=== PATIENT | male | born 1940 | race African-American/Black ===

== ENCOUNTER 2020-05-04 15:32 | Observation (INO) ==
[2020-05-04 16:06] LABS: Basophils % 0.4 % (0.0-0.8); Eosinophils # 0.3 10*3/uL (0.0-0.87); Eosinophils % 3.6 % (0.00-10.9); Hematocrit 26.1 VOL% (42.0-52.0); Hemoglobin 7.9 GM/DL (14.0-18.0); Immature Granulocytes % 0.4 %; Immature Granulocytes Absolute 0.04 #; Lymphocytes % 10.2 % (21.2-54.2); Mean Corpuscular HGB Conc 30.3 GM/DL (32-36); Mean Corpuscular Volume 94.9 FL (87-102); Mean Platelet Volume 11.4 FL (9.6-12.0); Monocytes % 8.5 % (1.7-12.7); Neutrophils % 76.9 % (38.7-73.9); Platelet Count 201 T/CUMM (130-400); Red Blood Count 2.75 MC/CUMM (3.8-5.5); Red Cell Distribution Width 15.6 % (9.3-17.3); White Blood Count 9.5 T/CUMM (4-12)
[2020-05-04 16:26] LABS: Alanine Aminotransferase 19 U/L (16-61); Albumin 2.6 G/DL (3.4-5.0); Alkaline Phosphatase 63 U/L (45-117); Aspartate Amino Transferase 31 U/L (0-37); Bilirubin,Total < 0.39 MG/DL (0.2-1.0); Blood Urea Nitrogen 103 MG/DL (7-18); Calcium 9.8 MG/DL (8.5-10.1); Estimated Glom Filtration Rate 21 ML/MIN; Glucose 214 MG/DL (74-106); Osmolality,Calculated 318.3 MOS/KG (273-304); Total Protein 7.9 G/DL (6.4-8.3)
[2020-05-04] MEDS: LACTATED RINGERS 1,000 ML IV SCH (19:21)
[2020-05-04] MEDS ORDERED: DEXTROSE 50% 25 GM/50 ML VIAL IV PRN ×2 (19:41)
[2020-05-04] MEDS ORDERED: GLUCAGON 1 MG VIAL IM PRN ×2 (19:41)
[2020-05-04] MEDS ORDERED: ACETAMINOPHEN 325 MG TABLET PO PRN (19:41)
[2020-05-04] MEDS ORDERED: ONDANSETRON 4 MG/2 ML VIAL IV PRN (19:41)
[2020-05-04 21:05] LABS: Bacteria,Urine Occasional /HPF (Few); Bilirubin,Urine Negative (Negative); Blood, Urine Small mg/dL (Negative); Glucose,Urine (UA) Negative (Negative); Hyaline Casts,Urine 4 /LPF (0-3); Ketones,Urine Negative (Negative); Mucus,Urine Occasional /LPF (Occasional); Nitrite,Urine Negative (Negative); Protein,Urine 30 MG/DL; RBC,Urine 2 /HPF (0-4); Squamous Epithelial Cell,Urine Occasional /HPF (0-10); Urine Appearance CLEAR (Clear); Urine Color Straw (Yellow); Urine Urobilinogen < 2.0 EU/DL (0.2-1.0); WBC,Urine 2 /HPF (0-6)
[2020-05-04] MEDS ORDERED: COLCHICINE 0.6 MG CAPSULE PO PRN (21:08)
[2020-05-04] MEDS: INSULIN LISPRO 100 UNIT/ML SUBCUT SCH (23:37)
[2020-05-05] MEDS: ASPIRIN EC 81 MG TABLET PO SCH ×2 (04:00→20:36)
[2020-05-05 05:59] LABS: Basophils # 0.1 10*3/uL (0.0-0.2); Basophils % 0.6 % (0.0-0.8); Eosinophils # 0.4 10*3/uL (0.0-0.87); Eosinophils % 4.7 % (0.00-10.9); Hematocrit 26.8 VOL% (42.0-52.0); Hemoglobin 8.3 GM/DL (14.0-18.0); Immature Granulocytes % 0.7 %; Immature Granulocytes Absolute 0.06 #; Lymphocytes # 0.8 10*3/uL (1.4-4.0); Lymphocytes % 10.3 % (21.2-54.2); Mean Corpuscular Volume 92.7 FL (87-102); Mean Platelet Volume 12.8 FL (9.6-12.0); Monocytes % 10.5 % (1.7-12.7); Neutrophils % 73.2 % (38.7-73.9); Platelet Count 155 T/CUMM (130-400); Red Blood Count 2.89 MC/CUMM (3.8-5.5); Red Cell Distribution Width 15.5 % (9.3-17.3); White Blood Count 8.2 T/CUMM (4-12)
[2020-05-05 06:01] LABS: Hypochromasia 1+; Microcytosis 1+; Ovalocytes Slight
[2020-05-05 06:02] LABS: Platelet Estimate Adequate; Target Cells Slight
[2020-05-05 06:20] LABS: Calcium 9.7 MG/DL (8.5-10.1); Osmolality,Calculated 314.3 MOS/KG (273-304)
[2020-05-05] MEDS: SODIUM CHLOR 0.45% KCL 20 MEQ 20 MEQ/1,000 ML BAG IV SCH ×2 (07:35→17:54)
[2020-05-05] MEDS: INSULIN LISPRO 100 UNIT/ML SUBCUT SCH ×3 (08:53→17:54)
[2020-05-05] MEDS: CHOLECALCIFEROL 1,000 UNIT TABLET PO SCH (08:54)
[2020-05-05] MEDS: OXYBUTYNIN XL 15 MG TABLET PO SCH (08:54)
[2020-05-05] MEDS: allopurinoL 300 MG TABLET PO SCH (08:54)
[2020-05-05] MEDS: CYANOCOBALAMIN 500 MCG TABLET PO SCH (08:55)
[2020-05-05] MEDS: CLOPIDOGREL 75 MG TABLET PO SCH (08:55)
[2020-05-05] MEDS: PANTOPRAZOLE 40 MG TABLET PO SCH (08:55)
[2020-05-05] MEDS: TAMSULOSIN 0.4 MG CAPSULE PO SCH (08:56)
[2020-05-05] MEDS ORDERED: lisinopriL 10 MG TABLET PO SCH (09:00)
[2020-05-05] MEDS: LACTATED RINGERS 1,000 ML IV SCH ×2 (11:42→11:43)
[2020-05-05] MEDS: HEPARIN 5,000 UNIT/1 ML VIAL SUBCUT SCH (17:55)
[2020-05-05] MEDS: ROSUVASTATIN 20 MG TABLET PO SCH (20:37)
[2020-05-06] MEDS: HEPARIN 5,000 UNIT/1 ML VIAL SUBCUT SCH ×3 (02:04→17:30)
[2020-05-06] MEDS: INSULIN LISPRO 100 UNIT/ML SUBCUT SCH ×5 (04:29→21:45)
[2020-05-06 06:25] LABS: Uric Acid 4.6 MG/DL (3.5-7.2)
[2020-05-06 08:00] LABS: Calcium 8.9 MG/DL (8.5-10.1); Osmolality,Calculated 318.6 MOS/KG (273-304)
[2020-05-06] MEDS: CYANOCOBALAMIN 500 MCG TABLET PO SCH (08:54)
[2020-05-06] MEDS: CHOLECALCIFEROL 1,000 UNIT TABLET PO SCH (08:54)
[2020-05-06] MEDS: CLOPIDOGREL 75 MG TABLET PO SCH (08:54)
[2020-05-06] MEDS: PANTOPRAZOLE 40 MG TABLET PO SCH (08:54)
[2020-05-06] MEDS: OXYBUTYNIN XL 15 MG TABLET PO SCH (08:54)
[2020-05-06] MEDS: allopurinoL 300 MG TABLET PO SCH (08:55)
[2020-05-06] MEDS: TAMSULOSIN 0.4 MG CAPSULE PO SCH (08:55)
[2020-05-06] MEDS: SODIUM CHLOR 0.45% KCL 20 MEQ 20 MEQ/1,000 ML BAG IV SCH ×2 (09:02→19:24)
[2020-05-06 17:37] LABS: Vitamin B12 > 2000 PG/ML (211-911)
[2020-05-06] MEDS: ASPIRIN EC 81 MG TABLET PO SCH (21:44)
[2020-05-06] MEDS: ROSUVASTATIN 20 MG TABLET PO SCH (21:44)
[2020-05-07] MEDS: HEPARIN 5,000 UNIT/1 ML VIAL SUBCUT SCH ×3 (02:55→17:44)
[2020-05-07 06:53] LABS: Osmolality,Calculated 316.4 MOS/KG (273-304)
[2020-05-07 06:56] LABS: Basophils % 0.5 % (0.0-0.8); Eosinophils # 0.3 10*3/uL (0.0-0.87); Eosinophils % 3.6 % (0.00-10.9); Hematocrit 26.6 VOL% (42.0-52.0); Hemoglobin 7.9 GM/DL (14.0-18.0); Immature Granulocytes % 0.6 %; Immature Granulocytes Absolute 0.05 #; Lymphocytes # 0.9 10*3/uL (1.4-4.0); Lymphocytes % 10.3 % (21.2-54.2); Mean Corpuscular HGB Conc 29.7 GM/DL (32-36); Mean Corpuscular Volume 94.7 FL (87-102); Mean Platelet Volume 11.5 FL (9.6-12.0); Monocytes % 10.1 % (1.7-12.7); Neutrophils % 74.9 % (38.7-73.9); Platelet Count 193 T/CUMM (130-400); Red Blood Count 2.81 MC/CUMM (3.8-5.5); Red Cell Distribution Width 15.3 % (9.3-17.3); White Blood Count 8.5 T/CUMM (4-12)
[2020-05-07] MEDS: CYANOCOBALAMIN 500 MCG TABLET PO SCH (09:08)
[2020-05-07] MEDS: CLOPIDOGREL 75 MG TABLET PO SCH (09:08)
[2020-05-07] MEDS: allopurinoL 300 MG TABLET PO SCH (09:08)
[2020-05-07] MEDS: TAMSULOSIN 0.4 MG CAPSULE PO SCH (09:08)
[2020-05-07] MEDS: INSULIN LISPRO 100 UNIT/ML SUBCUT SCH ×4 (09:09→21:18)
[2020-05-07] MEDS: PANTOPRAZOLE 40 MG TABLET PO SCH (09:09)
[2020-05-07] MEDS: OXYBUTYNIN XL 15 MG TABLET PO SCH (09:14)
[2020-05-07] MEDS: CHOLECALCIFEROL 1,000 UNIT TABLET PO SCH (09:14)
[2020-05-07] MEDS ORDERED: INFLUENZA VIRUS VACCINE 0.5 ML SYRINGE IM ONE (13:50)
[2020-05-07] MEDS: SODIUM CHLOR 0.45% KCL 20 MEQ 20 MEQ/1,000 ML BAG IV SCH (16:11)
[2020-05-07] MEDS: ASPIRIN EC 81 MG TABLET PO SCH (21:18)
[2020-05-07] MEDS: ROSUVASTATIN 20 MG TABLET PO SCH (21:18)
[2020-05-08] MEDS: HEPARIN 5,000 UNIT/1 ML VIAL SUBCUT SCH ×2 (00:49→08:41)
[2020-05-08] MEDS: INSULIN LISPRO 100 UNIT/ML SUBCUT SCH (08:12)
[2020-05-08] MEDS: allopurinoL 300 MG TABLET PO SCH (08:13)
[2020-05-08] MEDS: OXYBUTYNIN XL 15 MG TABLET PO SCH (08:13)
[2020-05-08] MEDS: CYANOCOBALAMIN 500 MCG TABLET PO SCH (08:13)
[2020-05-08] MEDS: CHOLECALCIFEROL 1,000 UNIT TABLET PO SCH (08:13)
[2020-05-08] MEDS: CLOPIDOGREL 75 MG TABLET PO SCH (08:14)
[2020-05-08] MEDS: PANTOPRAZOLE 40 MG TABLET PO SCH (08:14)
[2020-05-08] MEDS: TAMSULOSIN 0.4 MG CAPSULE PO SCH (08:14)
[2020-05-08 09:12] VITALS: BP 167/62
== END 2020-05-08 09:35 | disposition hospice, home (50) ==
LOC: N.ED 15:32 → SUATTDRO 19:41 → N.EDINP 19:41 → INTOOBSV 19:41 → N.4E 22:40
PROVIDERS: ADMIT Internal Medicine; ATTEND Emergency Medicine

== ENCOUNTER 2022-07-29 11:48 | Inpatient (IN) ==
[2022-07-29 17:00] LABS: Basophils % 0.2 % (0.0-0.8); Hematocrit 26.2 VOL% (42.0-52.0); Hemoglobin 8.5 GM/DL (14.0-18.0); Immature Granulocytes % 0.7 %; Immature Granulocytes Absolute 0.09 #; Lymphocytes # 0.5 10*3/uL (1.4-4.0); Lymphocytes % 3.8 % (21.2-54.2); Mean Corpuscular HGB Conc 32.4 GM/DL (32-36); Mean Corpuscular Volume 94.2 FL (87-102); Mean Platelet Volume 13.4 FL (9.6-12.0); Monocytes # 0.8 10*3/uL (0.11-0.8); Monocytes % 6.5 % (1.7-12.7); Neutrophils % 88.8 % (38.7-73.9); Platelet Count 121 T/CUMM (130-400); Red Blood Count 2.78 MC/CUMM (3.8-5.5); Red Cell Distribution Width 15.2 % (9.3-17.3); White Blood Count 12.7 T/CUMM (4-12)
[2022-07-29 17:20] LABS: Calcium 8.6 MG/DL (8.5-10.1); Osmolality,Calculated 324.7 MOS/KG (273-304)
[2022-07-29 17:27] LABS: Band Neutrophils 1 % (0-10); Hypochromia Slight; Lymphocytes 2 % (20-55); Total Cells Counted 100
[2022-07-29 17:28] LABS: Anisocytosis Slight; Platelet Estimate Normal
[2022-07-29] MEDS ORDERED: DOXYCYCLINE HYCLATE 100 MG CAPSULE PO STA (18:52)
[2022-07-29] MEDS ORDERED: cefTRIAXone 1,000 MG in SODIUM CHLORIDE 0.9% 100 ML IV STA (19:04)
[2022-07-29] MEDS ORDERED: AZITHROMYCIN INJ 500 MG in SODIUM CHLORIDE 0.9% 250 ML IV STA (19:04)
[2022-07-29] MEDS ORDERED: FUROSEMIDE 40 MG/4 ML VIAL IV STA ×2 (19:04→19:23)
[2022-07-29] MEDS ORDERED: DOCUSATE SODIUM 100 MG CAPSULE PO PRN (19:18)
[2022-07-29] MEDS ORDERED: ONDANSETRON 4 MG/2 ML VIAL IV PRN (19:18)
[2022-07-29] MEDS: INSULIN GLARGINE 100 UNIT/ML SUBCUT SCH (22:45)
[2022-07-29] MEDS: ALBUTEROL/IPRATROPIUM 3 ML NEB RESP TX SCH (22:45)
[2022-07-29] MEDS: HEPARIN 5,000 UNIT/1 ML VIAL SUBCUT SCH (22:45)
[2022-07-30 06:58] LABS: Basophils % 0.3 % (0.0-0.8); Eosinophils % 0.1 % (0.00-10.9); Hematocrit 25.5 VOL% (42.0-52.0); Hemoglobin 8.4 GM/DL (14.0-18.0); Immature Granulocytes % 0.5 %; Immature Granulocytes Absolute 0.06 #; Lymphocytes # 0.4 10*3/uL (1.4-4.0); Lymphocytes % 3.7 % (21.2-54.2); Mean Corpuscular HGB Conc 32.9 GM/DL (32-36); Mean Corpuscular Volume 93.4 FL (87-102); Mean Platelet Volume 11.2 FL (9.6-12.0); Monocytes # 1.2 10*3/uL (0.11-0.8); Monocytes % 9.8 % (1.7-12.7); Neutrophils % 85.6 % (38.7-73.9); Red Blood Count 2.73 MC/CUMM (3.8-5.5); Red Cell Distribution Width 15.2 % (9.3-17.3); White Blood Count 11.9 T/CUMM (4-12)
[2022-07-30 07:00] LABS: Platelet Count 109 T/CUMM (130-400)
[2022-07-30 07:10] LABS: Calcium 9.3 MG/DL (8.5-10.1); Osmolality,Calculated 326.5 MOS/KG (273-304); Potassium 3.5 MMOL/L (3.5-5.1); Risk Ratio 5.32; Thyroid Stimulating Hormone 0.671 uIU/ml (0.358-3.74); VLDL Cholesterol 30.8 MG/DL
[2022-07-30 07:46] LABS: Hypochromia Slight; Lymphocytes 1 % (20-55); Microcytosis Slight; Total Cells Counted 100
[2022-07-30] MEDS: ALBUTEROL/IPRATROPIUM 3 ML NEB RESP TX SCH ×3 (07:51→19:27)
[2022-07-30] MEDS: FUROSEMIDE 40 MG/4 ML VIAL IV SCH (08:25)
[2022-07-30] MEDS: ISOSORBIDE MONONITRATE 30 MG TABLET PO SCH (08:25)
[2022-07-30] MEDS: PANTOPRAZOLE 40 MG TABLET PO SCH (08:25)
[2022-07-30] MEDS: OXYBUTYNIN XL 10 MG TABLET PO SCH (08:25)
[2022-07-30] MEDS: CLOPIDOGREL 75 MG TABLET PO SCH (09:00)
[2022-07-30 11:05] LABS: Hepatitis B Core IgM Quant 0.13 Index; Hepatitis B Surface Ag Quant < 0.10 Index; Hepatitis B Surface Ag Result Non-Reactive (NonReactive); Hepatitis C Virus Ab Quant < 0.02 Index; Hepatitis C Virus Ab Result Non-Reactive (NonReactive)
[2022-07-30] MEDS ORDERED: HEPARIN 10,000 UNIT/10 ML VIAL IV SCH (12:30)
[2022-07-30] MEDS: HEPARIN 5,000 UNIT/1 ML VIAL SUBCUT SCH ×2 (14:54→20:39)
[2022-07-30] MEDS: ASPIRIN EC 81 MG TABLET PO SCH (14:59)
[2022-07-30] MEDS: allopurinoL 300 MG TABLET PO SCH (14:59)
[2022-07-30] MEDS: cefTRIAXone 2,000 MG in SODIUM CHLORIDE 0.9% 100 ML IV SCH (20:40)
[2022-07-30] MEDS: INSULIN GLARGINE 100 UNIT/ML SUBCUT SCH (20:40)
[2022-07-31] MEDS: ALBUTEROL/IPRATROPIUM 3 ML NEB RESP TX SCH ×4 (01:47→19:31)
[2022-07-31 05:45] LABS: Basophils % 0.2 % (0.0-0.8); Hematocrit 24.1 VOL% (42.0-52.0); Hemoglobin 7.8 GM/DL (14.0-18.0); Immature Granulocytes % 0.7 %; Immature Granulocytes Absolute 0.08 #; Lymphocytes # 0.4 10*3/uL (1.4-4.0); Lymphocytes % 3.1 % (21.2-54.2); Mean Corpuscular HGB Conc 32.4 GM/DL (32-36); Mean Corpuscular Volume 93.8 FL (87-102); Mean Platelet Volume 12.5 FL (9.6-12.0); Monocytes # 1.1 10*3/uL (0.11-0.8); Monocytes % 9.9 % (1.7-12.7); Neutrophils % 86.1 % (38.7-73.9); Platelet Count 120 T/CUMM (130-400); Red Blood Count 2.57 MC/CUMM (3.8-5.5); Red Cell Distribution Width 15.2 % (9.3-17.3); White Blood Count 11.4 T/CUMM (4-12)
[2022-07-31 06:00] LABS: Calcium 9.3 MG/DL (8.5-10.1); Osmolality,Calculated 316.5 MOS/KG (273-304); Potassium 3.5 MMOL/L (3.5-5.1)
[2022-07-31 06:02] LABS: Parathyroid Hormone Intact 333.2 PG/ML (18.4-80.1)
[2022-07-31 06:11] LABS: Ferritin 888.1 ng/mL (26-388); Phosphorous 5.4 MG/DL (2.5-4.9); Uric Acid 4.4 MG/DL (3.5-7.2)
[2022-07-31 06:29] LABS: Hypochromia Slight; Lymphocytes 2 % (20-55); Microcytosis Slight; Total Cells Counted 100
[2022-07-31] MEDS: HEPARIN 5,000 UNIT/1 ML VIAL SUBCUT SCH ×2 (10:28→20:54)
[2022-07-31] MEDS: allopurinoL 300 MG TABLET PO SCH (10:28)
[2022-07-31] MEDS: ASPIRIN EC 81 MG TABLET PO SCH (10:28)
[2022-07-31] MEDS: PANTOPRAZOLE 40 MG TABLET PO SCH (10:28)
[2022-07-31] MEDS: OXYBUTYNIN XL 10 MG TABLET PO SCH (10:28)
[2022-07-31] MEDS: ISOSORBIDE MONONITRATE 30 MG TABLET PO SCH (10:34)
[2022-07-31] MEDS: FUROSEMIDE 40 MG/4 ML VIAL IV SCH (11:22)
[2022-07-31] MEDS: CLOPIDOGREL 75 MG TABLET PO SCH (11:22)
[2022-07-31] MEDS: AZITHROMYCIN 250 MG TABLET PO SCH (12:09)
[2022-07-31] MEDS: cefTRIAXone 2,000 MG in SODIUM CHLORIDE 0.9% 100 ML IV SCH (20:54)
[2022-07-31] MEDS: INSULIN GLARGINE 100 UNIT/ML SUBCUT SCH (20:54)
[2022-08-01] MEDS: ALBUTEROL/IPRATROPIUM 3 ML NEB RESP TX SCH ×4 (00:16→19:30)
[2022-08-01 06:47] LABS: Basophils % 0.2 % (0.0-0.8); Eosinophils % 0.3 % (0.00-10.9); Hematocrit 23.6 VOL% (42.0-52.0); Hemoglobin 7.8 GM/DL (14.0-18.0); Immature Granulocytes % 0.9 %; Immature Granulocytes Absolute 0.09 #; Lymphocytes # 0.4 10*3/uL (1.4-4.0); Lymphocytes % 3.6 % (21.2-54.2); Mean Corpuscular HGB Conc 33.1 GM/DL (32-36); Mean Corpuscular Volume 91.8 FL (87-102); Mean Platelet Volume 12.6 FL (9.6-12.0); Monocytes # 1.1 10*3/uL (0.11-0.8); Monocytes % 10.5 % (1.7-12.7); Neutrophils % 84.5 % (38.7-73.9); Platelet Count 109 T/CUMM (130-400); Red Blood Count 2.57 MC/CUMM (3.8-5.5); Red Cell Distribution Width 15.5 % (9.3-17.3); White Blood Count 10.4 T/CUMM (4-12)
[2022-08-01 07:02] LABS: Calcium 9.1 MG/DL (8.5-10.1); Osmolality,Calculated 319.5 MOS/KG (273-304); Potassium 3.4 MMOL/L (3.5-5.1)
[2022-08-01 07:17] LABS: Eosinophils 1 % (0-10); Hypochromia Slight; Lymphocytes 6 % (20-55); Microcytosis Slight; Ovalocytes Slight; Platelet Estimate Decreased; Total Cells Counted 100
[2022-08-01] MEDS: ASPIRIN EC 81 MG TABLET PO SCH (09:34)
[2022-08-01] MEDS: OXYBUTYNIN XL 10 MG TABLET PO SCH (09:34)
[2022-08-01] MEDS: SEVELAMER CARBONATE 800 MG TABLET PO SCH ×3 (09:34→17:12)
[2022-08-01] MEDS: HEPARIN 5,000 UNIT/1 ML VIAL SUBCUT SCH ×2 (09:34→20:32)
[2022-08-01] MEDS: AZITHROMYCIN 250 MG TABLET PO SCH (09:34)
[2022-08-01] MEDS: ISOSORBIDE MONONITRATE 30 MG TABLET PO SCH (09:34)
[2022-08-01] MEDS: PANTOPRAZOLE 40 MG TABLET PO SCH (09:34)
[2022-08-01] MEDS: allopurinoL 300 MG TABLET PO SCH (09:34)
[2022-08-01] MEDS ORDERED: NITROGLYCERIN SL 0.4 MG TABLET SL PRN (13:14)
[2022-08-01] MEDS: carvediloL 12.5 MG TABLET PO SCH (17:12)
[2022-08-01] MEDS: cefTRIAXone 2,000 MG in SODIUM CHLORIDE 0.9% 100 ML IV SCH (20:31)
[2022-08-01] MEDS: ROSUVASTATIN 20 MG TABLET PO SCH (20:32)
[2022-08-01] MEDS: INSULIN GLARGINE 100 UNIT/ML SUBCUT SCH (20:32)
[2022-08-02] MEDS: ALBUTEROL/IPRATROPIUM 3 ML NEB RESP TX SCH ×4 (00:08→19:50)
[2022-08-02 05:17] LABS: Basophils % 0.1 % (0.0-0.8); Eosinophils # 0.1 10*3/uL (0.0-0.87); Eosinophils % 0.9 % (0.00-10.9); Hematocrit 25.1 VOL% (42.0-52.0); Hemoglobin 7.9 GM/DL (14.0-18.0); Immature Granulocytes % 0.7 %; Immature Granulocytes Absolute 0.07 #; Lymphocytes # 0.2 10*3/uL (1.4-4.0); Lymphocytes % 2.3 % (21.2-54.2); Mean Corpuscular HGB Conc 31.5 GM/DL (32-36); Mean Corpuscular Volume 93.3 FL (87-102); Mean Platelet Volume 12.2 FL (9.6-12.0); Monocytes # 1.2 10*3/uL (0.11-0.8); Monocytes % 11.7 % (1.7-12.7); NRBC # 0.02 10*3/uL; Neutrophils % 84.3 % (38.7-73.9); Platelet Count 133 T/CUMM (130-400); Red Blood Count 2.69 MC/CUMM (3.8-5.5); Red Cell Distribution Width 15.4 % (9.3-17.3); White Blood Count 9.9 T/CUMM (4-12)
[2022-08-02 05:47] LABS: Eosinophils 1 % (0-10); Hypochromia Slight; Lymphocytes 3 % (20-55); Total Cells Counted 100
[2022-08-02 05:48] LABS: Microcytosis Slight; Ovalocytes Slight; Target Cells Slight
[2022-08-02 05:51] LABS: Calcium 9.2 MG/DL (8.5-10.1); Osmolality,Calculated 304.5 MOS/KG (273-304); Potassium 3.5 MMOL/L (3.5-5.1)
[2022-08-02 05:57] LABS: % Iron Saturation 14.3 % (18-50)
[2022-08-02] MEDS ORDERED: EPOETIN ALFA-EPBX 10,000 UNIT/ML VIAL IV SCH (08:00)
[2022-08-02] MEDS: OMEGA 3 ACID ETHYL ESTERS 1 GM CAPSULE PO SCH (09:16)
[2022-08-02] MEDS: AZITHROMYCIN 250 MG TABLET PO SCH (09:16)
[2022-08-02] MEDS: SEVELAMER CARBONATE 800 MG TABLET PO SCH ×3 (09:16→17:13)
[2022-08-02] MEDS: allopurinoL 300 MG TABLET PO SCH (09:16)
[2022-08-02] MEDS: MULTIVITAMIN (CENTRUM) TABLET PO SCH (09:16)
[2022-08-02] MEDS: PANTOPRAZOLE 40 MG TABLET PO SCH (09:16)
[2022-08-02] MEDS: OXYBUTYNIN XL 10 MG TABLET PO SCH (09:16)
[2022-08-02] MEDS: ISOSORBIDE MONONITRATE 30 MG TABLET PO SCH (09:16)
[2022-08-02] MEDS: ASPIRIN EC 81 MG TABLET PO SCH (09:16)
[2022-08-02] MEDS: CHOLECALCIFEROL 5,000 UNIT TABLET PO SCH (09:17)
[2022-08-02] MEDS: DONEPEZIL 10 MG TABLET PO SCH (09:17)
[2022-08-02] MEDS: carvediloL 12.5 MG TABLET PO SCH ×2 (09:17→17:13)
[2022-08-02] MEDS: TAMSULOSIN 0.4 MG CAPSULE PO SCH (09:17)
[2022-08-02] MEDS: HEPARIN 5,000 UNIT/1 ML VIAL SUBCUT SCH ×2 (09:17→21:20)
[2022-08-02] MEDS: cefTRIAXone 2,000 MG in SODIUM CHLORIDE 0.9% 100 ML IV SCH (09:18)
[2022-08-02] MEDS: INSULIN GLARGINE 100 UNIT/ML SUBCUT SCH (21:19)
[2022-08-02] MEDS: MENTHOL/ZINC OXIDE OINT 71 GM JAR TOP SCH (21:19)
[2022-08-02] MEDS: ROSUVASTATIN 20 MG TABLET PO SCH (21:20)
[2022-08-03] MEDS: ALBUTEROL/IPRATROPIUM 3 ML NEB RESP TX SCH ×4 (00:19→20:15)
[2022-08-03] MEDS: cefTRIAXone 2,000 MG in SODIUM CHLORIDE 0.9% 100 ML IV SCH (09:15)
[2022-08-03] MEDS: SEVELAMER CARBONATE 800 MG TABLET PO SCH ×3 (09:15→16:15)
[2022-08-03] MEDS: PANTOPRAZOLE 40 MG TABLET PO SCH (09:16)
[2022-08-03] MEDS: MULTIVITAMIN (CENTRUM) TABLET PO SCH (09:16)
[2022-08-03] MEDS: allopurinoL 300 MG TABLET PO SCH (09:16)
[2022-08-03] MEDS: TAMSULOSIN 0.4 MG CAPSULE PO SCH (09:16)
[2022-08-03] MEDS: CHOLECALCIFEROL 5,000 UNIT TABLET PO SCH (09:16)
[2022-08-03] MEDS: DONEPEZIL 10 MG TABLET PO SCH (09:16)
[2022-08-03] MEDS: OXYBUTYNIN XL 10 MG TABLET PO SCH (09:16)
[2022-08-03] MEDS: carvediloL 12.5 MG TABLET PO SCH ×2 (09:16→17:01)
[2022-08-03] MEDS: OMEGA 3 ACID ETHYL ESTERS 1 GM CAPSULE PO SCH (09:16)
[2022-08-03] MEDS: AZITHROMYCIN 250 MG TABLET PO SCH (09:16)
[2022-08-03] MEDS: HEPARIN 5,000 UNIT/1 ML VIAL SUBCUT SCH (09:16)
[2022-08-03] MEDS: ISOSORBIDE MONONITRATE 30 MG TABLET PO SCH (09:16)
[2022-08-03] MEDS: ASPIRIN EC 81 MG TABLET PO SCH (12:20)
[2022-08-03] MEDS: MENTHOL/ZINC OXIDE OINT 71 GM JAR TOP SCH ×2 (12:20→21:41)
[2022-08-03] MEDS: ROSUVASTATIN 20 MG TABLET PO SCH (21:40)
[2022-08-03] MEDS: INSULIN GLARGINE 100 UNIT/ML SUBCUT SCH (21:41)
[2022-08-04] MEDS: ALBUTEROL/IPRATROPIUM 3 ML NEB RESP TX SCH ×4 (00:15→19:45)
[2022-08-04] MEDS ORDERED: SODIUM CHLORIDE 0.9% 250 ML IV SCH (08:00)
[2022-08-04] MEDS ORDERED: SEVOFLURANE 1 UNIT/15 MINUTE INH ONE (09:26)
[2022-08-04] MEDS ORDERED: LIDOCAINE 2% 5 ML VIAL ONE (09:26)
[2022-08-04] MEDS ORDERED: fentaNYL 100 MCG/2 ML VIAL ONE (09:26)
[2022-08-04] MEDS ORDERED: propofoL 200 MG/20 ML VIAL IV ONE (09:26)
[2022-08-04] MEDS ORDERED: PHENYLEPHRINE 1 MG/10 ML SYRINGE IV ONE (09:26)
[2022-08-04] MEDS ORDERED: ETOMIDATE 40 MG/20 ML VIAL IV ONE (09:26)
[2022-08-04] MEDS ORDERED: ROCURONIUM 50 MG/5 ML VIAL IV ONE (09:26)
[2022-08-04] MEDS ORDERED: LIDOCAINE 1%/EPI INJ 20 ML VIAL ONE (09:27)
[2022-08-04] MEDS ORDERED: HEPARIN 5,000 UNIT/1 ML VIAL ONE (09:27)
[2022-08-04] MEDS ORDERED: BUPIVACAINE MPF 0.25% 10 ML VIAL ONE (09:27)
[2022-08-04] MEDS ORDERED: ONDANSETRON 4 MG/2 ML VIAL ONE (09:27)
[2022-08-04] MEDS: carvediloL 12.5 MG TABLET PO SCH ×2 (09:56→17:55)
[2022-08-04] MEDS: SEVELAMER CARBONATE 800 MG TABLET PO SCH ×3 (09:56→17:36)
[2022-08-04] MEDS: MENTHOL/ZINC OXIDE OINT 71 GM JAR TOP SCH ×2 (09:57→20:44)
[2022-08-04] MEDS ORDERED: SUGAMMADEX 200 MG/2 ML VIAL IV ONE (10:41)
[2022-08-04] MEDS: MULTIVITAMIN (CENTRUM) TABLET PO SCH (11:11)
[2022-08-04] MEDS: ASPIRIN EC 81 MG TABLET PO SCH (11:11)
[2022-08-04] MEDS: PANTOPRAZOLE 40 MG TABLET PO SCH (11:11)
[2022-08-04] MEDS: OMEGA 3 ACID ETHYL ESTERS 1 GM CAPSULE PO SCH (11:12)
[2022-08-04] MEDS: CHOLECALCIFEROL 5,000 UNIT TABLET PO SCH (11:12)
[2022-08-04] MEDS: allopurinoL 300 MG TABLET PO SCH (11:12)
[2022-08-04] MEDS ORDERED: PHENYLEPHRINE DRIP 20 MG/250 ML PREMIX IV ONE (11:21)
[2022-08-04 12:04] LABS: Basophils % 0.3 % (0.0-0.8); Eosinophils # 0.4 10*3/uL (0.0-0.87); Eosinophils % 2.7 % (0.00-10.9); Hematocrit 24.7 VOL% (42.0-52.0); Hemoglobin 7.9 GM/DL (14.0-18.0); Immature Granulocytes % 1.3 %; Immature Granulocytes Absolute 0.19 #; Lymphocytes # 0.7 10*3/uL (1.4-4.0); Lymphocytes % 4.7 % (21.2-54.2); Mean Corpuscular Volume 92.5 FL (87-102); Mean Platelet Volume 11.2 FL (9.6-12.0); Monocytes # 1.4 10*3/uL (0.11-0.8); Monocytes % 9.8 % (1.7-12.7); NRBC # 0.02 10*3/uL; Neutrophils % 81.2 % (38.7-73.9); Platelet Count 212 T/CUMM (130-400); Red Blood Count 2.67 MC/CUMM (3.8-5.5); Red Cell Distribution Width 15.7 % (9.3-17.3); White Blood Count 14.8 T/CUMM (4-12)
[2022-08-04 12:32] LABS: Calcium 8.1 MG/DL (8.5-10.1); Osmolality,Calculated 312.4 MOS/KG (273-304); Potassium 4.3 MMOL/L (3.5-5.1)
[2022-08-04 14:32] LABS: Eosinophils 2 % (0-10); Lymphocytes 4 % (20-55); Nucleated Red Blood Cells 1 /100 WBC (0-5); Total Cells Counted 100
[2022-08-04 14:33] LABS: Platelet Estimate Adequate
[2022-08-04] MEDS: OXYBUTYNIN XL 10 MG TABLET PO SCH (14:35)
[2022-08-04] MEDS: TAMSULOSIN 0.4 MG CAPSULE PO SCH (14:35)
[2022-08-04] MEDS: DONEPEZIL 10 MG TABLET PO SCH (14:35)
[2022-08-04] MEDS: ISOSORBIDE MONONITRATE 30 MG TABLET PO SCH (14:35)
[2022-08-04] MEDS: cefTRIAXone 2,000 MG in SODIUM CHLORIDE 0.9% 100 ML IV SCH (18:04)
[2022-08-04] MEDS: AZITHROMYCIN 250 MG TABLET PO SCH (19:02)
[2022-08-04] MEDS: ROSUVASTATIN 20 MG TABLET PO SCH (20:41)
[2022-08-04] MEDS: INSULIN GLARGINE 100 UNIT/ML SUBCUT SCH (20:44)
[2022-08-05] MEDS: ALBUTEROL/IPRATROPIUM 3 ML NEB RESP TX SCH ×4 (01:38→20:30)
[2022-08-05 05:31] LABS: Basophils # 0.1 10*3/uL (0.0-0.2); Basophils % 0.4 % (0.0-0.8); Eosinophils # 0.4 10*3/uL (0.0-0.87); Eosinophils % 2.5 % (0.00-10.9); Hematocrit 25.8 VOL% (42.0-52.0); Hemoglobin 8.3 GM/DL (14.0-18.0); Immature Granulocytes % 2.5 %; Lymphocytes # 0.8 10*3/uL (1.4-4.0); Lymphocytes % 4.8 % (21.2-54.2); Mean Corpuscular HGB Conc 32.2 GM/DL (32-36); Mean Corpuscular Volume 92.8 FL (87-102); Mean Platelet Volume 11.5 FL (9.6-12.0); Monocytes # 1.5 10*3/uL (0.11-0.8); Monocytes % 8.9 % (1.7-12.7); NRBC # 0.12 10*3/uL; Neutrophils % 80.9 % (38.7-73.9); Platelet Count 166 T/CUMM (130-400); Red Blood Count 2.78 MC/CUMM (3.8-5.5); Red Cell Distribution Width 15.5 % (9.3-17.3); White Blood Count 16.2 T/CUMM (4-12)
[2022-08-05 05:45] LABS: Calcium 8.5 MG/DL (8.5-10.1); Osmolality,Calculated 283.8 MOS/KG (273-304); Potassium 4.5 MMOL/L (3.5-5.1)
[2022-08-05 06:05] LABS: Lymphocytes 2 % (20-55); Nucleated Red Blood Cells 1 /100 WBC (0-5); Total Cells Counted 100
[2022-08-05 06:06] LABS: Microcytosis Slight; Ovalocytes Slight; Polychromasia Slight; Target Cells Slight
[2022-08-05] MEDS: DONEPEZIL 10 MG TABLET PO SCH (08:51)
[2022-08-05] MEDS: OXYBUTYNIN XL 10 MG TABLET PO SCH (08:51)
[2022-08-05] MEDS: MULTIVITAMIN (CENTRUM) TABLET PO SCH (08:51)
[2022-08-05] MEDS: TAMSULOSIN 0.4 MG CAPSULE PO SCH (08:51)
[2022-08-05] MEDS: allopurinoL 300 MG TABLET PO SCH (08:51)
[2022-08-05] MEDS: CHOLECALCIFEROL 5,000 UNIT TABLET PO SCH (08:51)
[2022-08-05] MEDS: carvediloL 12.5 MG TABLET PO SCH ×2 (08:51→17:50)
[2022-08-05] MEDS: ISOSORBIDE MONONITRATE 30 MG TABLET PO SCH (08:51)
[2022-08-05] MEDS: ASPIRIN EC 81 MG TABLET PO SCH (08:51)
[2022-08-05] MEDS: OMEGA 3 ACID ETHYL ESTERS 1 GM CAPSULE PO SCH (08:51)
[2022-08-05] MEDS: PANTOPRAZOLE 40 MG TABLET PO SCH (08:51)
[2022-08-05] MEDS: SEVELAMER CARBONATE 800 MG TABLET PO SCH ×3 (08:51→17:50)
[2022-08-05] MEDS: MENTHOL/ZINC OXIDE OINT 71 GM JAR TOP SCH ×2 (08:51→20:12)
[2022-08-05] MEDS: cefTRIAXone 2,000 MG in SODIUM CHLORIDE 0.9% 100 ML IV SCH (17:00)
[2022-08-05] MEDS: ROSUVASTATIN 20 MG TABLET PO SCH (20:11)
[2022-08-05] MEDS: INSULIN GLARGINE 100 UNIT/ML SUBCUT SCH (20:11)
[2022-08-06] MEDS: ALBUTEROL/IPRATROPIUM 3 ML NEB RESP TX SCH ×4 (00:29→19:06)
[2022-08-06 08:09] LABS: Basophils % 0.3 % (0.0-0.8); Eosinophils # 0.3 10*3/uL (0.0-0.87); Eosinophils % 2.1 % (0.00-10.9); Hematocrit 25.3 VOL% (42.0-52.0); Hemoglobin 8.3 GM/DL (14.0-18.0); Immature Granulocytes % 2.7 %; Immature Granulocytes Absolute 0.37 #; Lymphocytes # 0.9 10*3/uL (1.4-4.0); Lymphocytes % 6.9 % (21.2-54.2); Mean Corpuscular HGB Conc 32.8 GM/DL (32-36); Mean Corpuscular Volume 93.4 FL (87-102); Mean Platelet Volume 11.2 FL (9.6-12.0); Monocytes # 1.4 10*3/uL (0.11-0.8); Monocytes % 10.5 % (1.7-12.7); NRBC # 0.04 10*3/uL; Neutrophils % 77.5 % (38.7-73.9); Platelet Count 193 T/CUMM (130-400); Red Blood Count 2.71 MC/CUMM (3.8-5.5); Red Cell Distribution Width 15.8 % (9.3-17.3); White Blood Count 13.6 T/CUMM (4-12)
[2022-08-06] MEDS: PANTOPRAZOLE 40 MG TABLET PO SCH (08:29)
[2022-08-06] MEDS: OMEGA 3 ACID ETHYL ESTERS 1 GM CAPSULE PO SCH (08:29)
[2022-08-06] MEDS: CHOLECALCIFEROL 5,000 UNIT TABLET PO SCH (08:29)
[2022-08-06] MEDS: SEVELAMER CARBONATE 800 MG TABLET PO SCH ×3 (08:29→17:07)
[2022-08-06] MEDS: MULTIVITAMIN (CENTRUM) TABLET PO SCH (08:30)
[2022-08-06] MEDS: OXYBUTYNIN XL 10 MG TABLET PO SCH (08:30)
[2022-08-06] MEDS: ISOSORBIDE MONONITRATE 30 MG TABLET PO SCH (08:30)
[2022-08-06] MEDS: TAMSULOSIN 0.4 MG CAPSULE PO SCH (08:30)
[2022-08-06] MEDS: DONEPEZIL 10 MG TABLET PO SCH (08:30)
[2022-08-06] MEDS: allopurinoL 300 MG TABLET PO SCH (08:31)
[2022-08-06] MEDS: ASPIRIN EC 81 MG TABLET PO SCH (08:31)
[2022-08-06] MEDS: carvediloL 12.5 MG TABLET PO SCH ×2 (08:31→17:07)
[2022-08-06] MEDS: MENTHOL/ZINC OXIDE OINT 71 GM JAR TOP SCH ×2 (08:31→20:25)
[2022-08-06] MEDS ORDERED: ALTEPLASE 2 MG VIAL IV ONE (12:00)
[2022-08-06] MEDS: cefTRIAXone 2,000 MG in SODIUM CHLORIDE 0.9% 100 ML IV SCH (17:07)
[2022-08-06] MEDS: INSULIN GLARGINE 100 UNIT/ML SUBCUT SCH (20:25)
[2022-08-06] MEDS: ROSUVASTATIN 20 MG TABLET PO SCH (20:25)
[2022-08-07 05:23] LABS: Calcium 8.1 MG/DL (8.5-10.1); Osmolality,Calculated 286.5 MOS/KG (273-304); Potassium 4.4 MMOL/L (3.5-5.1)
[2022-08-07] MEDS: ALBUTEROL/IPRATROPIUM 3 ML NEB RESP TX SCH ×3 (07:00→18:58)
[2022-08-07] MEDS: ASPIRIN EC 81 MG TABLET PO SCH (09:28)
[2022-08-07] MEDS: carvediloL 12.5 MG TABLET PO SCH ×2 (09:29→17:48)
[2022-08-07] MEDS: OXYBUTYNIN XL 10 MG TABLET PO SCH (09:29)
[2022-08-07] MEDS: PANTOPRAZOLE 40 MG TABLET PO SCH (09:29)
[2022-08-07] MEDS: MULTIVITAMIN (CENTRUM) TABLET PO SCH (09:29)
[2022-08-07] MEDS: DONEPEZIL 10 MG TABLET PO SCH (09:29)
[2022-08-07] MEDS: TAMSULOSIN 0.4 MG CAPSULE PO SCH (09:29)
[2022-08-07] MEDS: CHOLECALCIFEROL 5,000 UNIT TABLET PO SCH (09:29)
[2022-08-07] MEDS: ISOSORBIDE MONONITRATE 30 MG TABLET PO SCH (09:29)
[2022-08-07] MEDS: allopurinoL 300 MG TABLET PO SCH (09:29)
[2022-08-07] MEDS: OMEGA 3 ACID ETHYL ESTERS 1 GM CAPSULE PO SCH (09:29)
[2022-08-07] MEDS: SEVELAMER CARBONATE 800 MG TABLET PO SCH ×3 (09:29→17:48)
[2022-08-07] MEDS: MENTHOL/ZINC OXIDE OINT 71 GM JAR TOP SCH ×2 (09:30→20:59)
[2022-08-07] MEDS: ROSUVASTATIN 20 MG TABLET PO SCH (20:59)
[2022-08-07] MEDS: INSULIN GLARGINE 100 UNIT/ML SUBCUT SCH (21:00)
[2022-08-08] MEDS: ALBUTEROL/IPRATROPIUM 3 ML NEB RESP TX SCH ×4 (00:38→19:25)
[2022-08-08 06:29] LABS: Calcium 8.6 MG/DL (8.5-10.1); Osmolality,Calculated 291.4 MOS/KG (273-304); Potassium 4.7 MMOL/L (3.5-5.1)
[2022-08-08] MEDS: MULTIVITAMIN (CENTRUM) TABLET PO SCH (08:56)
[2022-08-08] MEDS: SEVELAMER CARBONATE 800 MG TABLET PO SCH ×3 (08:56→17:16)
[2022-08-08] MEDS: allopurinoL 300 MG TABLET PO SCH (08:56)
[2022-08-08] MEDS: CHOLECALCIFEROL 5,000 UNIT TABLET PO SCH (08:56)
[2022-08-08] MEDS: OXYBUTYNIN XL 10 MG TABLET PO SCH (08:56)
[2022-08-08] MEDS: OMEGA 3 ACID ETHYL ESTERS 1 GM CAPSULE PO SCH (08:57)
[2022-08-08] MEDS: PANTOPRAZOLE 40 MG TABLET PO SCH (08:57)
[2022-08-08] MEDS: carvediloL 12.5 MG TABLET PO SCH ×2 (08:57→17:16)
[2022-08-08] MEDS: TAMSULOSIN 0.4 MG CAPSULE PO SCH (08:57)
[2022-08-08] MEDS: ISOSORBIDE MONONITRATE 30 MG TABLET PO SCH (08:57)
[2022-08-08] MEDS: ASPIRIN EC 81 MG TABLET PO SCH (08:57)
[2022-08-08] MEDS: MENTHOL/ZINC OXIDE OINT 71 GM JAR TOP SCH ×2 (09:00→20:03)
[2022-08-08] MEDS: DONEPEZIL 10 MG TABLET PO SCH (09:04)
[2022-08-08] MEDS: INSULIN GLARGINE 100 UNIT/ML SUBCUT SCH (20:03)
[2022-08-08] MEDS: ROSUVASTATIN 20 MG TABLET PO SCH (20:03)
[2022-08-09] MEDS: ALBUTEROL/IPRATROPIUM 3 ML NEB RESP TX SCH ×4 (00:25→19:38)
[2022-08-09 05:53] LABS: Basophils % 0.3 % (0.0-0.8); Eosinophils # 0.2 10*3/uL (0.0-0.87); Eosinophils % 1.4 % (0.00-10.9); Hematocrit 22.1 VOL% (42.0-52.0); Immature Granulocytes % 3.2 %; Immature Granulocytes Absolute 0.34 #; Lymphocytes # 0.9 10*3/uL (1.4-4.0); Lymphocytes % 8.5 % (21.2-54.2); Mean Corpuscular HGB Conc 31.7 GM/DL (32-36); Mean Corpuscular Volume 93.2 FL (87-102); Mean Platelet Volume 10.8 FL (9.6-12.0); Monocytes # 1.6 10*3/uL (0.11-0.8); Monocytes % 15.3 % (1.7-12.7); NRBC # 0.02 10*3/uL; Neutrophils % 71.3 % (38.7-73.9); Platelet Count 195 T/CUMM (130-400); Red Blood Count 2.37 MC/CUMM (3.8-5.5); Red Cell Distribution Width 15.9 % (9.3-17.3); White Blood Count 10.5 T/CUMM (4-12)
[2022-08-09 06:32] LABS: Calcium 8.5 MG/DL (8.5-10.1); Potassium 4.1 MMOL/L (3.5-5.1)
[2022-08-09] MEDS ORDERED: SODIUM CHLORIDE 0.9% 1,000 ML IV PRN (07:52)
[2022-08-09] MEDS: ISOSORBIDE MONONITRATE 30 MG TABLET PO SCH (08:56)
[2022-08-09] MEDS: CHOLECALCIFEROL 5,000 UNIT TABLET PO SCH (08:56)
[2022-08-09] MEDS: DONEPEZIL 10 MG TABLET PO SCH (08:56)
[2022-08-09] MEDS: ASPIRIN EC 81 MG TABLET PO SCH (08:56)
[2022-08-09] MEDS: TAMSULOSIN 0.4 MG CAPSULE PO SCH (08:56)
[2022-08-09] MEDS: OMEGA 3 ACID ETHYL ESTERS 1 GM CAPSULE PO SCH (08:56)
[2022-08-09] MEDS: OXYBUTYNIN XL 10 MG TABLET PO SCH (08:56)
[2022-08-09] MEDS: carvediloL 12.5 MG TABLET PO SCH ×2 (08:56→16:21)
[2022-08-09] MEDS: PANTOPRAZOLE 40 MG TABLET PO SCH (08:57)
[2022-08-09] MEDS: MULTIVITAMIN (CENTRUM) TABLET PO SCH (08:57)
[2022-08-09] MEDS: allopurinoL 300 MG TABLET PO SCH (08:57)
[2022-08-09] MEDS: SEVELAMER CARBONATE 800 MG TABLET PO SCH ×3 (08:57→16:21)
[2022-08-09] MEDS: MENTHOL/ZINC OXIDE OINT 71 GM JAR TOP SCH ×2 (08:59→21:17)
[2022-08-09 18:36] LABS: Hematocrit 29.3 VOL% (42.0-52.0); Hemoglobin 9.5 GM/DL (14.0-18.0)
[2022-08-09] MEDS: ROSUVASTATIN 20 MG TABLET PO SCH (21:09)
[2022-08-09] MEDS: INSULIN GLARGINE 100 UNIT/ML SUBCUT SCH (21:11)
[2022-08-10] MEDS: ALBUTEROL/IPRATROPIUM 3 ML NEB RESP TX SCH ×4 (01:16→19:45)
[2022-08-10] MEDS: ASPIRIN EC 81 MG TABLET PO SCH (08:05)
[2022-08-10] MEDS: MENTHOL/ZINC OXIDE OINT 71 GM JAR TOP SCH ×2 (08:05→20:46)
[2022-08-10] MEDS: OXYBUTYNIN XL 10 MG TABLET PO SCH (08:05)
[2022-08-10] MEDS: MULTIVITAMIN (CENTRUM) TABLET PO SCH (08:06)
[2022-08-10] MEDS: TAMSULOSIN 0.4 MG CAPSULE PO SCH (08:06)
[2022-08-10] MEDS: DONEPEZIL 10 MG TABLET PO SCH (08:06)
[2022-08-10] MEDS: SEVELAMER CARBONATE 800 MG TABLET PO SCH ×3 (08:06→16:49)
[2022-08-10] MEDS: PANTOPRAZOLE 40 MG TABLET PO SCH (08:06)
[2022-08-10] MEDS: allopurinoL 300 MG TABLET PO SCH (08:06)
[2022-08-10] MEDS: OMEGA 3 ACID ETHYL ESTERS 1 GM CAPSULE PO SCH (08:06)
[2022-08-10] MEDS: CHOLECALCIFEROL 5,000 UNIT TABLET PO SCH (08:07)
[2022-08-10 09:14] LABS: Basophils % 0.4 % (0.0-0.8); Eosinophils # 0.1 10*3/uL (0.0-0.87); Eosinophils % 0.7 % (0.00-10.9); Hematocrit 30.9 VOL% (42.0-52.0); Hemoglobin 9.8 GM/DL (14.0-18.0); Immature Granulocytes % 2.1 %; Immature Granulocytes Absolute 0.21 #; Lymphocytes # 0.8 10*3/uL (1.4-4.0); Lymphocytes % 7.6 % (21.2-54.2); Mean Corpuscular HGB Conc 31.7 GM/DL (32-36); Mean Corpuscular Volume 93.1 FL (87-102); Mean Platelet Volume 10.4 FL (9.6-12.0); Monocytes # 0.7 10*3/uL (0.11-0.8); Monocytes % 6.8 % (1.7-12.7); Neutrophils % 82.4 % (38.7-73.9); Platelet Count 176 T/CUMM (130-400); Red Blood Count 3.32 MC/CUMM (3.8-5.5); Red Cell Distribution Width 15.4 % (9.3-17.3)
[2022-08-10 09:39] LABS: Calcium 8.6 MG/DL (8.5-10.1); Osmolality,Calculated 279.8 MOS/KG (273-304); Potassium 3.8 MMOL/L (3.5-5.1)
[2022-08-10] MEDS: carvediloL 12.5 MG TABLET PO SCH ×2 (12:38→16:49)
[2022-08-10] MEDS: ISOSORBIDE MONONITRATE 30 MG TABLET PO SCH (12:43)
[2022-08-10] MEDS ORDERED: TUBERCULIN SKIN TEST 0.1 ML SYRINGE INTRADERM ONE (15:20)
[2022-08-10] MEDS: INSULIN GLARGINE 100 UNIT/ML SUBCUT SCH (20:45)
[2022-08-10] MEDS: ROSUVASTATIN 20 MG TABLET PO SCH (20:45)
[2022-08-11] MEDS: ALBUTEROL/IPRATROPIUM 3 ML NEB RESP TX SCH ×2 (00:37→06:50)
[2022-08-11 05:54] LABS: Basophils # 0.1 10*3/uL (0.0-0.2); Basophils % 0.5 % (0.0-0.8); Eosinophils # 0.2 10*3/uL (0.0-0.87); Eosinophils % 1.9 % (0.00-10.9); Hematocrit 30.7 VOL% (42.0-52.0); Hemoglobin 9.9 GM/DL (14.0-18.0); Immature Granulocytes % 2.2 %; Immature Granulocytes Absolute 0.25 #; Lymphocytes # 1.2 10*3/uL (1.4-4.0); Lymphocytes % 9.9 % (21.2-54.2); Mean Corpuscular HGB Conc 32.2 GM/DL (32-36); Mean Corpuscular Volume 93.6 FL (87-102); Mean Platelet Volume 10.4 FL (9.6-12.0); Monocytes # 1.5 10*3/uL (0.11-0.8); Monocytes % 12.9 % (1.7-12.7); Neutrophils % 72.6 % (38.7-73.9); Platelet Count 177 T/CUMM (130-400); Red Blood Count 3.28 MC/CUMM (3.8-5.5); Red Cell Distribution Width 15.4 % (9.3-17.3); White Blood Count 11.6 T/CUMM (4-12)
[2022-08-11 06:11] LABS: Calcium 8.8 MG/DL (8.5-10.1); Osmolality,Calculated 281.2 MOS/KG (273-304); Potassium 4.5 MMOL/L (3.5-5.1)
[2022-08-11] MEDS: OXYBUTYNIN XL 10 MG TABLET PO SCH (08:38)
[2022-08-11] MEDS: ASPIRIN EC 81 MG TABLET PO SCH (08:38)
[2022-08-11] MEDS: MULTIVITAMIN (CENTRUM) TABLET PO SCH (08:38)
[2022-08-11] MEDS: ISOSORBIDE MONONITRATE 30 MG TABLET PO SCH (08:38)
[2022-08-11] MEDS: OMEGA 3 ACID ETHYL ESTERS 1 GM CAPSULE PO SCH (08:38)
[2022-08-11] MEDS: carvediloL 12.5 MG TABLET PO SCH (08:39)
[2022-08-11] MEDS: allopurinoL 300 MG TABLET PO SCH (08:39)
[2022-08-11] MEDS: TAMSULOSIN 0.4 MG CAPSULE PO SCH (08:39)
[2022-08-11] MEDS: CHOLECALCIFEROL 5,000 UNIT TABLET PO SCH (08:39)
[2022-08-11] MEDS: DONEPEZIL 10 MG TABLET PO SCH (08:39)
[2022-08-11] MEDS: SEVELAMER CARBONATE 800 MG TABLET PO SCH (08:39)
[2022-08-11] MEDS: PANTOPRAZOLE 40 MG TABLET PO SCH (08:41)
[2022-08-11] MEDS: MENTHOL/ZINC OXIDE OINT 71 GM JAR TOP SCH (08:44)
[2022-08-11 12:05] VITALS: BP 150/52
[2022-08-12 14:55] LABS: QuantiFERON-Tb Gold Pl Positive (Negative); TB2 Ag Minus Result 6.55 IU/mL
== END 2022-08-11 12:16 | DRG 291 ==
LOC: N.ED 11:48 → N.2E 19:18 → SUATTDRO 19:18 → N.2E 23:00
PROVIDERS: ADMIT Internal Medicine; ATTEND Hospitalist